=== PATIENT | male | born 1975 | race Caucasian/White ===

== ENCOUNTER 2023-07-07 17:51 | Emergency (ER) | payer OTHER ==
[~2023-07-07] VITALS: Ht 177.8 cm; Wt 80.7 kg
[2023-07-07] MEDS: ONDANSETRON 4 MG/2 ML VIAL IV ONE (18:43)
[2023-07-07] MEDS: HYDROMORPHONE 1 MG/1 ML DISP.SYRIN IV ONE (18:43)
[2023-07-07 19:24] VITALS: BP 144/83; O2SAT 100
== END 2023-07-07 19:24 | disposition left against medical advice (07) ==
LOC: ER 17:54
DX: Z04.3 Encounter for examination and observation following other accident (principal); Z53.21 Procedure and treatment not carried out due to patient leaving prior to being seen by health care provider; V89.2XXA Person injured in unspecified motor-vehicle accident, traffic, initial encounter; Y93.89 Activity, other specified; Y92.89 Other specified places as the place of occurrence of the external cause; Y99.8 Other external cause status
CPT/HCPCS: A4606; A4663